=== PATIENT | female | born 1990 | race Hispanic/Latino ===

== ENCOUNTER → 2020-07-09 06:56 | Outpatient (CLI) | payer BC, SELFPAY ==
[2020-07-09 23:32] LABS: SARS-CoV-2 RNA PCR Negative
== END ==
PROVIDERS: PCP Emergency Medicine; Visit Provider Emergency Medicine
DX: Z20.822 Contact with and (suspected) exposure to COVID-19 (principal)
CPT/HCPCS: C9803; U0003; U0005

== ENCOUNTER 2020-07-20 09:26 | Outpatient (CLI) | payer BC, SELFPAY ==
--- NOTE | ~2020-07-20 | US_ITS ---
US abdomen complete EXAMINATION: US Abdomen Complete INDICATION: Umbilical pain. UTI. PROCEDURE: Realtime High Resolution abdomen ultrasound. COMPARISON: No prior studies for comparison FINDINGS: Gallbladder within normal limits. No gallstones, pericholecystic fluid, gallbladder wall t hickening or biliary dilatation. Common bile duct measures 3 mm. Liver echotexture within normal limits without focal mass. Pancreas within normal limits. Pancreati c tail is obscured by bowel gas. Spleen is unremarkeable. Renal echotexture is within normal limits bilaterally without hydronephrosis, contour deforming mass or renal stone. Right kidney measures 10.9 cm. Left kidney measures 10.8 cm. Soft tissues around the umbilicus are within normal limits heterog eneous echotexture. No focal mass. Visualized aspects of the aorta and IVC are within normal limits. Portal vein is patent. No sonograph ic Marks's sign indicated by the technologist. IMPRESSION: 1: Normal abdominal ultrasound. Reviewed, dictated and finalized at location A. [employer]
[2020-07-20 10:54] LABS: Add Urine Microscopic? YES; Appearance Urine Clear (Clear); Bilirubin Urine Negative (Negative); Blood Urine 3+ (Negative); Color Urine Yellow (Yellow); Glucose Urine UA Negative (Negative); Ketones Urine Negative (Negative); Leukocyte Esterase Ur Trace LEU/UL (NEGATIVE); Mucus Urine Heavy /lpf; Nitrate Urine Negative (Negative); Protein Urine 1+ mg/dL (Negative); RBC Urine >75 /hpf (0-2); Specific Grav Ur 1.021 (1.001-1.035); Squamous Epithelial Cell Urine Few /hpf (Few)
== END 2020-07-20 09:27 | disposition home or self-care (01) ==
PROVIDERS: PCP Emergency Medicine; Visit Provider Emergency Medicine
DX: R10.33 Periumbilical pain (principal)
CPT/HCPCS: 76700; 81001; 87086

== ENCOUNTER → 2021-10-11 00:07 | Outpatient (CLI) | payer BC, SELFPAY ==
[2021-10-11 11:27] LABS: SARS-CoV-2 RNA PCR Negative
== END ==
PROVIDERS: PCP Emergency Medicine; Visit Provider Emergency Medicine
DX: R05.9 Cough, unspecified (principal); Z20.822 Contact with and (suspected) exposure to COVID-19
CPT/HCPCS: C9803; U0003; U0005

== ENCOUNTER 2021-11-12 12:02 | Outpatient (CLI) | payer BC, SELFPAY ==
[2021-11-12 12:42] LABS: Hemoglobin A1C 4.6 % (<5.7)
[2021-11-12 12:51] LABS: Creatinine Urine 150.9 mg/dL
[2021-11-12 12:55] LABS: MALB Creatinine Ratio 11.6 mg/g (0-30); Microalbumin Urine Random 17.5 mg/L (0-16.7)
[2021-11-12 13:09] LABS: Vitamin D 25 Hydroxy 22.9 ng/mL
== END 2021-11-12 12:03 | disposition home or self-care (01) ==
PROVIDERS: PCP Emergency Medicine; Visit Provider Emergency Medicine
DX: R31.9 Hematuria, unspecified (principal); E55.9 Vitamin D deficiency, unspecified
CPT/HCPCS: 36415; 82043; 82306; 83036

== ENCOUNTER 2023-01-25 16:46 | Outpatient (CLI) | payer BC, SELFPAY | END 2023-01-25 16:47 | disposition home or self-care (01) | LOC: ANHIMG 16:48 | PROVIDERS: PCP Emergency Medicine; Visit Provider Emergency Medicine | DX: M25.561 Pain in right knee (principal) | CPT/HCPCS: 73562 ==

== ENCOUNTER 2024-02-23 09:09 | Outpatient (CLI) | payer BC, SELFPAY ==
[2024-02-23 09:51] LABS: Hematocrit 36.2 % (37.0-47.0); Hemoglobin 11.8 g/dL (12.0-15.0); Mean Corpuscular HGB Conc 32.6 g/dl (32-36); Mean Corpuscular Hemoglobin 29.4 pg (26-34); Mean Platelet Volume 10.4 fl (7.4-10.4); Platelet Count Result 317 k/mm3 (150-375); Red Blood Count 4.02 M/mm3 (4.2-5.4); Red Cell Distribution Width 12.6 % (11.5-14.5); White Blood Count 5.8 K/mm3 (4.5-10.0)
[2024-02-23 10:02] LABS: Alanine Aminotransferase 11 U/L (6-35); Albumin Level 4.2 g/dL (3.5-5.1); Alkaline Phosphatase 63 U/L (38-126); Anion Gap 7 mmol/L (4-12); Aspartate Amino Transferase 25 U/L (14-36); Bilirubin,Total 0.5 mg/dL (0.2-1.3); Blood Urea Nitrogen 13 mg/dL (7-17); Carbon Dioxide 28 mmol/L (22-30); Chloride 105 mmol/L (98-107); Cholesterol 149 mg/dL (0-200); Estimated Glomerular Filt Rate > 60; Glucose 90 mg/dL (65-110); HDL Direct 51 mg/dL; Potassium 3.6 mmol/L (3.4-5.0); Sodium 140 mmol/L (137-145); Triglycerides 46 mg/dL (<150)
[2024-02-23 10:13] LABS: Hemoglobin A1C 4.9 % (<5.7)
[2024-02-23 10:14] LABS: LDL Cholesterol Direct 74 mg/dL
[2024-02-23 10:33] LABS: Microalbumin Urine Random 9.3 mg/L (0-16.7)
[2024-02-23 10:46] LABS: Creatinine Urine 107.3 mg/dL; MALB Creatinine Ratio 8.7 mg/g (0-30)
[2024-02-23 11:01] LABS: Vitamin D 25 Hydroxy 16.9 ng/mL
== END 2024-02-23 09:10 | disposition home or self-care (01) ==
LOC: ANHLAB 09:12
PROVIDERS: PCP Emergency Medicine; Visit Provider Emergency Medicine
DX: F41.9 Anxiety disorder, unspecified (principal); F32.9 Major depressive disorder, single episode, unspecified; K21.9 Gastro-esophageal reflux disease without esophagitis; J45.909 Unspecified asthma, uncomplicated; G43.909 Migraine, unspecified, not intractable, without status migrainosus
CPT/HCPCS: 36415; 80053; 80061; 82043; 82306; 83036; 84439; 84443; 85027

== ENCOUNTER 2024-10-17 09:41 | Outpatient (CLI) | payer BC, SELFPAY ==
--- NOTE | ~2024-10-17 | XR_ITS ---
XR scapula RT Ordering provider: Everett Rosenthal MD History: . scapula pain . Comparison: None. FINDINGS: BONES: No acute fracture or dislocation. JOINT SPACES: The acromioclavicular joint is normal. The glenohumeral joint is normal. SOFT TISSUES: Normal. IMPRESSION: No acute osseous abnormality right scapula. Reviewed, dictated and finalized at location A.
--- NOTE | ~2024-10-17 | XR_ITS ---
3 VIEWS THORACIC SPINE Ordering provider: Everett Rosenthal MD History: . scapula pain . Comparison: None. FINDINGS: VERTEBRAL BODIES: Normal height and alignment. No visible fracture or subluxation. DISK SPACES: Normal. SOFT TISSUES: Normal. IMPRESSION: No acute osseous abnormality of the thoracic spine. Reviewed, dictated and finalized at location A.
--- OUTSIDE RECORDS SUMMARY | 2024-10-17 10:28 | XMS_ITS | Data Portability ---
Author Organization [facility] Address [address] [place] [address] Care Team Providers Care Heart Specialist Name Role Phone VANESSA CARMEN Primary Care Provider [phone] Assessment Encounter Date Assessment Date Assessment LastModified by Organization Details LastModified Time 09/02/2020 09/02/2020 Annual gynecological exam performed. Patient will come back in a year unless there are new symptoms. Not available 09/02/2020 12:01:42 08/19/2021 08/19/2021 Annual gynecological exam performed. Patient will come back in a year unless there are new symptoms. [email or web address] Not available 08/19/2021 12:59:35 Plan of Treatment Reminders Order Date Submit Date Provider Last Modified By Organization Details Last Modified Time Details Appointments None record ed. Lab None record ed. Referral None record ed. Procedures None record ed. Surgeries None record ed. Imaging None record ed. Medication Orders None record ed. Patient TargetsNo targets recorded. Patient InstructionsNo instructions recorded. Reason for Referral None Reported. 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 Elect julieta rutledge ryan d by Tammy Maradiaga ret, CT on 2021 at 11:47 AM ----- ----- ----- ----- ----- ----- ----- ----- ----- ----- ----- ----- ----- ----- ----- ----- ----- ---- HPV RESUL TS: HPV mRNA E6/E7 : No HPV mRNA Detec domenic NOTE: This high risk HPV mRNA assay detec ts fourt een high- risk HPV types (16, 18, 31, 33, 35, 39, 45, 51, 52, 56, 58, 59, 66, 68) witho ut diffe renti ation . COMME NT: Note: This speci men was revie wed by a Cytot echno logis t and/o r Patho logis t (as indic ated in this repor t) after evalu ation using the Thinp rep Imagi ng Syste m. CLINI PETRA INFOR MATIO N: Menst rual Statu s: LMP (if appli cable ): Clini petra Histo ry/Pr eviou s Pap: Type of Neopl giovanny (if appli cable ): Signi fican t Clini petra Findi ngs: Other Histo ry: Hormo rubin (if appli cable ): PAP EDUCA JOSE LUIS L NOTE: The Pap Test is a scree yoselin test with an inher ent false negat wilder rate. Liqui d-bas ed sampl ing may decre ase, but will not elimi pia, false negat wilder resul ts. A negat wilder resul t does not precl ude the prese nce and/o r devel opmen t of disea se, since the prese nce of abnor mal cells in the sampl e depen ds on the locat ion of the lesio n and sampl ing techn ique. Aleks nued regul ar scree yoselin is the best metho d of cance r preve ntion . If repor domenic cytol ogic findi ng do not corre late with physi petra and/o r histo rical findi ngs, furth er inves tigat ion is recom marla d, as clini ervin moreno nted. Not Available [facility] (Lab) [address], [place], [address], 08/26/2021 12:49:39 Result Notes None recorded. Procedures Surgical History Date Name Laterality Status Provider Name and Address Organization Details Recorded Time 08/20/19 22 Date of Last Pap Smear completed Maeve Campbell [facility] 08/19/2021 13:01:32 05/10/19 08 Appendectomy completed [facility] 09/02/2020 12:22:11 Imaging Results None recorded. Procedure Notes None recorded. Medical Equipment None Reported. Allergies Allergen ID Allergen Name Allergen Category Reaction Reaction Severity Criticality Documentation Date Start Date Code Code System Note Provider Name and Address Organization Details Recorded Time 55183 Levaquin medicatio n Not available Not available Not available 09/02/2020 62372 2 RxNorm [facility] 12:18:56 Medications Name Sig Start Date Stop Date Status Note LastModified by Organization Details LastModified Time oxybutynin chloride ER 10 mg tablet,extended release 24 hr 08/19 completed Not Available Not Available Not Available ondansetron HCl 4 mg tablet 08/19 completed Not Available Not Available Not Available amoxicillin 500 mg tablet 08/19 completed Not Available Not Available Not Available ketorolac 10 mg tablet 08/19 completed Not Available Not Available Not Available oxycodone-acetam inophen 5 mg-325 mg tablet 08/19 completed Not Available Not Available Not Available amoxicillin 875 mg tablet 08/19 completed Not Available Not Available Not Available tamsulosin 0.4 mg capsule 08/19 completed Not Available Not Available Not Available montelukast 10 mg tablet active Not Available Not Available No t Available ergocalciferol (vitamin D2) 1,250 mcg (50,000 unit) capsule 08/19 completed Not Available Not Available Not Available albuterol sulfate HFA 90 mcg/actuation aerosol inhaler active Not Available Not Availa ble Not Available fluticasone propionate 50 mcg/actuation nasal spray,suspension active Not Available Not Avail able Not Available amoxicillin 875 mg-potassium clavulanate 125 mg tablet 08/19 completed Not Available Not Available Not Available clobetasol 0.05 % shampoo active Not Available Not Available No t Available nitrofurantoin monohydrate/macr ocrystals 100 mg capsule 09/02 completed Not Available Not Available Not Available Vitals Date Recorded Body height Body mass index (BMI) Body weight Systolic blood pressure Diastolic blood pressure Provider Name and Address Organization Details Last Updated DateTime 08/19/2021 156.21 cm 25.3 kg/m2 04394.56 g 124 mm[Hg] 82 mm[Hg] Maeve Campbell [facility] 2 13:00:14 Date Recorded Body height Body mass index (BMI) Body weight Systolic blood pressure Diastolic blood pressure Provider Name and Address Organization Details Last Updated DateTime 09/02/2020 156.21 cm 24.5 kg/m2 31048.19 g 110 mm[Hg] 74 mm[Hg] Theresa Menon [facility] 12:18:47 Social History Question Answer Notes LastModified by Organizat ion Details LastModified Time Tobacco Smoking Status Never Smoker [facility] 09/02/2020 12:21:51 Are You Blind Or Do You Have Difficulty Seeing? No Information n ot available 09/02/2020 What Is Your Level Of Caffeine Consumption? Occasional Information not available 09/02/2020 In The 14 Days Before Symptom Onset, Have You Had Close Contact With A Laboratory-confirm ed COVID-19 While That Case Was Ill? No Information n ot available 09/02/2020 In The 14 Days Before Symptom Onset, Have You Had Close Contact With A Person Who Is Under Investigation For COVID-19 While That Person Was Ill? No Information not available 09/02/2020 Have You Been To An Area Known To Be High Risk For COVID-19? No Information not available 09/02/2020 Are You Deaf Or Do You Have Serious Difficulty Hearing? No [email or web address] Information not available 08/19/2021 What Type Of Diet Are You Following? REGULAR Information n ot available 09/02/2020 Have You Ever Been Counseled For Unhealthy Alcohol Use? No [email or web address] Information not available 08/19/2021 Do You Use Your Seat Belt Or Car Seat Routinely? Yes Information not available 09/02/2020 Do You Have Smoke And Carbon Monoxide Detectors In Your Home? Yes Information not available 09/02/2020 Do You Use Sunscreen Routinely? Yes Information not available 09/02/2020 Has Tobacco Cessation Counseling Been Provided? No [email or web address] Information not available 08/19/2021 Do You Have Difficulty Walking Or Climbing Stairs? No Information not available 08/19/2021 Sex: Unknown Functional Status Question Answer Note LastModified by Organizat ion Details LastModified Time Do you use any illicit or recreational drugs? No Information not available 09/02/2020 Do you or have you ever used any other forms of tobacco or nicotine? No [email or web address] Information not available 08/19/2021 What is your level of alcohol consumption? Occasional Information not available 08/19/2021 Are you able to walk? YESWOREST Information not available 09/02/2020 Are you able to care for yourself? Yes [email or web address] Information n ot available 08/19/2021 Do you have difficulty dressing or bathing? No [email or web address] Information not available 08/19/2021 What is your exercise level? Occasional Information not available 09/02/2020 Mental Status Question Answer Note LastModified by Organization D etails LastModified Time Do you feel stressed (tense, restless, nervous, or anxious, or unable to sleep at night)? [id number] Information not available 09/02/2020 Family History Relationship Description Onset Age of this Age Resolved Age Notes LastModified by Organization Details LastModified Time Brother Asthma Not available 12:21:02 Sister Asthma Not available 12:21:02 Sister Anemia Not available 12:21:11 Father Asthma Not available 12:21:02 Maternal Grandmother Malignant tumor of cervix Not available 2020 12:21:24 Maternal Aunt Malignant tumor of cervix Not available 2020 12:21:24 Maternal Aunt Malignant tumor of breast [email or web address] Not available 08/20 15:25:46 Maternal Aunt Malignant neoplasm of ovary Not available 08/20 15:25:56 Maternal Aunt Malignant tumor of colon [email or web address] Not available 08/20 15:26:11 Medical History Condition Response Allergies (Food, seasonal, environmental ) Y Other N Breast Cancer N Drug/Latex Allergies/Reactions Y Blood Transfusion N Lung Disease N Dermatologic Disorders N Defects or Inherited Disease N Breast Problem N Gestational Diabetes N Hematologic disorders N Anesthesia Complications N History of STI N Deep Vein Thrombosis N Polycystic ovary syndrome N Anxiety Disorder N Autoimmune disease N Arthritis N Polyps N Infertility Y History of abnormal pap N Acid Reflux (GERD) N Cancer N Varicosities N Stroke N Neurologic/Epilepsy N Endometriosis N High Cholesterol N Fibromyalgia N Headaches N Kidney Disease N Heart Problems N Kidney or Bladder Problems N Thyroid Problems N GI Problems N Eating Disorder N Anemia N Art (IVF or FET) N Psychiatric Illness N Ovarian Cancer N Diabetes N Pulmonary (TB, Asthma) Y Hepatitis/Liver Disease N No Past Medical History N Eczema N Urinary Tract Infection N Abuse/Domestic Violence N Asthma Y Trauma/Violence N Depression/ depression N Heart Disease N Pre-Eclampsia N Hypertension N Osteoporosis N Thrombophilias N Gynecological History Statement/Question Response Flow Light Date of Last Mammogram Date of LMP 07/22/2021 Was last menstrual period normal Y STIs/STDs N HPV Vaccine N Duration of Flow (days) 7 12 Current Control Method None Are cycles usually normal Y Frequency of Cycle (Q days) 28 Sexually Active? Y Menses Monthly Y Date of DEXA bone scan Age of first menstrual cycle 13 Date of Last Pap Smear 08/19/2021 Sexual Problems? N Desired Control Method None LMP Approximate Obstetrics History GPAL:G 0 P 0 0 0 0 Type Value Living 0 Total 0 Past Encounters Encounter ID Performer Location Encounter Start Date Encounter Closed Date Diagnosis/Indication Diagnosis SNOMED-CT Code Diagnosis ICD10 Code Diagnosis Note [id number] Shayy Mathis [facility] [address],[facility] [place] [address] 09/02/2020 11:56:57 09/02/2020 12:41:44 Gynecologic examination 50607695 Z01.419 Take Calcium with Vitamin D 1200mg daily if not receiving in daily diet. It is strongly advised to have an annual flu shot and up can obtain at most pharmacies . If you have not had a TDap shot in the last 10 years you should obtain one as well. Discussed with patient & provided with informatio n regarding Gardisil vaccine to prevent the 4 strains for HPV that cause cervical cancer if under age 26. Encourage safe sexual practices, to use condoms and limit partners if not already in a monogamous relationsh ip. Do monthly self breast exams. Have mammogram yearly or every other year depending on family history. BRCA testing is now available for patients with strong genetic history of female cancer. If interested contact the office. Engage in daily exercise of low impact aerobic exercise 45-60 minutes 4-5 times weekly. Avoid tobacco and illicit drugs as well as using moderation with alcohol intake less than 1-2 8 oz beverages daily. This lifestyle behavior pattern will lead to less health conditions and longer life span. If BMI greater than 25 weight watchers or dietary consult advised. Patient received above instructio ns, and questions have been answered. If you have any questions please call or respond to this email. Patient was made aware of the patient portal and may obtain a paper copy of today's plan if desired. Pap/hpv due 2021 Pap Hx wnl Declined std screen No issues or concerns PNV advised as not preventing [id number] Shayy Mathis [facility] [address] [address] 08/19/2021 12:37:44 08/19/2021 13:27:50 Gynecologic examination 55488641 Z01.419 Take Calcium with Vitamin D 1200mg daily if not receiving in daily diet. It is strongly advised to have an annual flu shot and up can obtain at most pharmacies . If you have not had a TDap shot in the last 10 years you should obtain one as well. Discussed with patient & provided with informatio n regarding Gardisil vaccine to prevent the 4 strains for HPV that cause cervical cancer if under age 26. Encourage safe sexual practices, to use condoms and limit partners if not already in a monogamous relationsh ip. Do monthly self breast exams. Have mammogram yearly or every other year depending on family history. BRCA testing is now available for patients with strong genetic history of female cancer. If interested contact the office. Engage in daily exercise of low impact aerobic exercise 45-60 minutes 4-5 times weekly. Avoid tobacco and illicit drugs as well as using moderation with alcohol intake less than 1-2 8 oz beverages daily. This lifestyle behavior pattern will lead to less health conditions and longer life span. If BMI greater than 25 weight watchers or dietary consult advised. Patient received above instructio ns, and questions have been answered. If you have any questions please call or respond to this email. Patient was made aware of the patient portal and may obtain a paper copy of today's plan if desired. Pap/hpv sent STD Screen declined Genetic Screen discussed Colon Screen na Dexa Screen na Routine Labs UTD PCPMammo na Health Concerns Section Related Observation LastModified by Organization Detai ls LastModified Time None Recorded Concern Status LastModified by Organization Details LastModified Time None Recorded Advance Directives Directive None Recorded Payers Encounter Date Sequence Insurance Name Policy Number Policy Mueller Covered Member ID Mueller Member ID Guarantor Name 09/02/2020 1 [employer] [id number] Matheus Cuevas [id number] Concetta Cuevas 08/19/2021 1 [employer] [id number] Matheus Cuevas [id number] Concetta Cuevas Notes Date Note Type Note Provider Name and Address Organization Details Recorded Time 09/02/2020 text/html Annual GYNReport ed bypatient.History: no gynecologic complaints Menstrual cycle:Normal menses Urinary symptoms:No hematuria; No incontinence Vulva:No genital lesion Vagina:Normal vaginal discharge Breast:No breast pain; No breast lump; No nipple discharge Current Contraception:Greenlee gamous relationship; Not sexually active Sexual complaints:No sexual complaints; No pain during intercourse; Normal libido Menopausal Symptoms:No menopausal symptoms; Normal vaginal lubrication Psychological symptoms:No depression; No anxiety; No PMDD Preventive measures:Encourage self breast examination; Encourage regular exercise; Encourage no tobacco use; Encourage regular mammograms starting age 40; Followed with Q3 year pap smear and high risk HPV typing Shayy Mathis [facility] [address], [place], [address], [facility] 09/02/2020 12:41:12 08/19/2021 text/html Annual GYNReport ed bypatient.History: no gynecologic complaints Menstrual cycle:Normal menses Urinary symptoms:No hematuria; No incontinence Vulva:No genital lesion Vagina:Normal vaginal discharge Breast:No breast pain; No breast lump; No nipple discharge Current Contraception:Aubree h control not practiced (Hx of infertility Has adopted children x 3) Sexual complaints:No sexual complaints; No pain during intercourse; Normal libido Menopausal Symptoms:No menopausal symptoms; Normal vaginal lubrication Psychological symptoms:No depression; No anxiety; No PMDD Preventive measures:Encourage self breast examination; Encourage regular exercise; Encourage no tobacco use; Encourage regular mammograms starting age 40; Followed with Q3 year pap smear and high risk HPV typing Shayy Mathis [facility] [address], [place], [address], [facility] 08/19/2021 13:20:06 OBGyn Episode No OBEpisode recorded.
--- OUTSIDE RECORDS SUMMARY | 2024-10-17 10:28 | XMS_ITS | CONTINUITY OF CARE DOCUMENT ---
Author Name jeannette amadacornell Address Unknown Organization [facility] Address [address] [place] [address] Phone [phone] Care Team Providers Care Pantry Goods Worker Name Role Phone Herbie Goyal MD Unavailable CARMEN MENDEZ MD Unavailable [phone] CARMEN MENDEZ MD Unavailable [phone] PROBLEMS Condition Status Date Provider Notes Heart burn active Herbie Goyal MD Chest pain active Herbie Goyal MD Cardiology examination active Herbie Goyal MD VITAL SIGNS Date Observation Value Provider blood pressure, diastolic 78 mm[Hg] Hortencia nkLogic blood pressure, systolic 107 mm[Hg] Mone Lomax ALLERGIES Allergy Name Onset Date Reaction Criticality Status LEAVQIN High Criticality active INSURANCE PROVIDERS Payer name Policy type / Coverage type [place] red democrat ID [facility] [id number] ADVANCE DIRECTIVES Name Date DISCUSSED - NO DECISION MADE TREATMENT PLAN Date Name Performer [id number],C,S tress test (04/09/2022) results were normal Herbie Goyal MD [id number],B,T his was improved on the PPI. I have asked her to follow up with her PCP for this Herbie Goyal MD [id number],C,I have asked get PPI over the counter and see if that helps Herbie Goyal MD [id number],C,H er EKG looks relatively normal. We will check a stress echo to see if there is any evidence of ischemia Herbie Goyal MD Telehealth:Stress test (04/09/20) results were normal Herbie Goyal MD Telehealth:This was improved on the PPI. I have asked her to follow up with her PCP for this Herbie Goyal MD Cardiology:I have as ked get PPI over the counter and see if that helps Herbie Goyal MD Cardiology:Her EKG l ooks relatively normal. We will check a stress echo to see if there is any evidence of ischemia Herbie Goyal MD Date Name Stress Echo HISTORY OF PROCEDURES Procedure Date Procedure Name Provider Procedure Notes S tatus EKG Herbie Goyal MD completed
== END 2024-10-17 09:42 | disposition home or self-care (01) ==
PROVIDERS: PCP Emergency Medicine; Visit Provider Emergency Medicine
DX: M25.511 Pain in right shoulder (principal)
CPT/HCPCS: 72072; 73010